=== PATIENT | male | born 1965 | race Caucasian/White ===

== ENCOUNTER 2022-07-26 19:36 | Emergency (ER) | payer OTHER ==
[~2022-07-26] VITALS: Ht 185.4 cm; Wt 100.0 kg
[2022-07-26 22:41] LABS: BASOPHILS % (AUTO) 2.2 % (0.0-2.0); EOSINOPHILS % (AUTO) 0.4 % (1.0-6.0); HEMOGLOBIN 12.6 g/dL (13.5-17.5); LYMPHOCYTES # (AUTO) 1.9 K/uL (1.0-4.8); LYMPHOCYTES % (AUTO) 58.9 % (22.0-44.0); MEAN CORPUSCULAR HEMOGLOBIN 36.1 pg (26.0-34.0); MEAN CORPUSCULAR VOLUME 106 fL (80-100); MONOCYTES # (AUTO) 0.2 K/uL (0.1-1.0); MONOCYTES % (AUTO) 6.1 % (2.0-9.0); NEUTROPHILS % (AUTO) 32.4 % (40.0-70.0); PLATELET COUNT (AUTO) 124 K/uL (150-450); RED BLOOD CELL COUNT(AUTO) 3.49 MIL/uL (4.50-5.90)
[2022-07-26 22:51] LABS: ANION GAP 8 mmol/L (8-16); CALCIUM, TOTAL 8.8 mg/dL (8.8-10.5); CARBON DIOXIDE 30 mmol/L (22-29); CHLORIDE 103 mmol/L (98-107); CREATININE 0.74 mg/dL (0.60-1.30); GLOMERULAR FILTR. RATE CALC > 60 mL/min (>60); GLUCOSE,RANDOM 78 mg/dL (70-110); POTASSIUM 3.6 mmol/L (3.5-5.1); SODIUM SERUM 141 mmol/L (136-145); UREA NITROGEN, BLOOD 12 mg/dL (7-18)
[2022-07-26 22:54] LABS: PLATELET MORPHOLOGY COMMENT LARGE PLTS PRESENT
[2022-07-26 22:57] LABS: ALANINE AMINOTRANSFERASE 47 U/L (12-78); ALKALINE PHOSPHATASE 57 U/L (46-116); ASPARTATE AMINOTRANSFERASE 102 U/L (15-37); BILIRUBIN,TOTAL 1.1 mg/dL (0.1-1.0); TOTAL PROTEIN, SERUM 7.3 g/dL (6.4-8.2)
[2022-07-26 23:10] LABS: ALBUMIN 3.6 g/dL (3.4-5.0); LIPASE 108 U/L (73-393)
[2022-07-27 05:43] VITALS: BP 150/89
== END 2022-07-27 10:25 | disposition home or self-care (01) ==
LOC: EMS 19:37
DX: F10.129 Alcohol abuse with intoxication, unspecified (principal); K70.30 Alcoholic cirrhosis of liver without ascites; F17.210 Nicotine dependence, cigarettes, uncomplicated
CPT/HCPCS: 99283; 80053; 83690; 84484; 85025; 36415; G0480